=== PATIENT | female | born 1965 | race Caucasian/White ===

== ENCOUNTER → 2016-08-03 | Outpatient (CLI) | payer OTHER ==
[~2016-08-03] MED LIST: ATIVAN 1MG TABLE1 MG PO; DICLOFENAC POTA50 MG PO; DULERA 200 MCG8.8 GM INH; ELIQUIS2.5 MG PO; NEURONTIN 400400 MG PO; NORCO 5-325 TA1 EACH PO; OMEPRAZOLE40 MG PO; PERCOCET 10-321 EACH PO; SERTRALINE HCL100 MG PO; SPIRIVA18 MCG PO
[2016-08-03 09:34] LABS: HEMOGLOBIN 10.4 gm/dl (12.3-15.3); RED BLOOD COUNT 4.37 M/UL (4.00-5.10); WHITE BLOOD COUNT 9.8 K/UL (4.5-11.0)
[2016-08-03 09:44] LABS: BUN/CREATININE RATIO 15 (0-10)
== END ==
LOC: OPSV2 08:30
PROVIDERS: Orthopaedic Surgery
DX: Z01.812 Encounter for preprocedural laboratory examination (principal); Z01.818 Encounter for other preprocedural examination; M17.12 Unilateral primary osteoarthritis, left knee
CPT/HCPCS: 36415; 71020; 80048; 81001; 84703; 85027

== ENCOUNTER → 2016-08-06 | Outpatient (CLI) | payer OTHER | LOC: LAB 13:02 | DX: Z01.812 Encounter for preprocedural laboratory examination (principal) | CPT/HCPCS: 36415; 80051; 82565; 84520; 86850; 86900; 86901 ==

== ENCOUNTER 2016-08-07 06:04 | Inpatient (IN) | payer OTHER ==
[~2016-08-07] VITALS: Ht 175.3 cm; Wt 106.1 kg
[2016-08-07] MEDS ORDERED: NEURONTIN 400400 MG PO (06:57)
[2016-08-07] MEDS ORDERED: ATIVAN 1MG TABLE1 MG PO (06:57)
[2016-08-07] MEDS ORDERED: NORCO 5-325 TA1 EACH PO (06:58)
[2016-08-07] MEDS ORDERED: SERTRALINE HCL100 MG PO (06:58)
[2016-08-07] MEDS ORDERED: SPIRIVA18 MCG PO (06:59)
[2016-08-07] MEDS ORDERED: DULERA 200 MCG8.8 GM INH (07:00)
[2016-08-07] MEDS ORDERED: OMEPRAZOLE40 MG PO (07:01)
[2016-08-07] MEDS ORDERED: DICLOFENAC POTA50 MG PO (18:11)
[2016-08-08 05:43] LABS: HEMOGLOBIN 9.4 gm/dl (12.3-15.3); RED BLOOD COUNT 4.12 M/UL (4.00-5.10); WHITE BLOOD COUNT 6.9 K/UL (4.5-11.0)
[2016-08-08 05:57] LABS: BUN/CREATININE RATIO 12 (0-10)
[2016-08-09 06:07] LABS: RED BLOOD COUNT 3.9 M/UL (4.00-5.10); WHITE BLOOD COUNT 7.7 K/UL (4.5-11.0)
[2016-08-09 06:20] LABS: BUN/CREATININE RATIO 14 (0-10)
[2016-08-10 04:03] LABS: HEMOGLOBIN 9.1 gm/dl (12.3-15.3); RED BLOOD COUNT 3.91 M/UL (4.00-5.10); WHITE BLOOD COUNT 7.5 K/UL (4.5-11.0)
[2016-08-10 04:28] LABS: BUN/CREATININE RATIO 10 (0-10)
[2016-08-10] MEDS ORDERED: PERCOCET 10-321 EACH PO (17:25)
[2016-08-11] MEDS ORDERED: ELIQUIS2.5 MG PO (16:27)
== END 2016-08-11 17:03 | disposition home health service (06) | DRG 470 ==
LOC: ZOBSOF 06:04 → M/S 18:02
PROVIDERS: ADMIT Orthopaedic Surgery
PROC: 0SRD0J9 Replacement of Left Knee Joint with Synthetic Substitute, Cemented, Open Approach (ICD-10-PCS; principal; 2016-08-08)
DX: M17.0 Bilateral primary osteoarthritis of knee (principal); Z86.19 Personal history of other infectious and parasitic diseases; J44.9 Chronic obstructive pulmonary disease, unspecified; F32.9 Major depressive disorder, single episode, unspecified; K44.9 Diaphragmatic hernia without obstruction or gangrene; Z90.2 Acquired absence of lung [part of]; Z98.84 Bariatric surgery status; Z87.891 Personal history of nicotine dependence; D50.9 Iron deficiency anemia, unspecified; Z88.2 Allergy status to sulfonamides; Z88.8 Allergy status to other drugs, medicaments and biological substances; Z79.891 Long term (current) use of opiate analgesic; Z79.51 Long term (current) use of inhaled steroids; Z79.899 Other long term (current) drug therapy
CPT/HCPCS: 36415; 36600; 73560; 80048; 82728; 82803; 83036; 83540; 84703; 85027; 93005; 97110; 97116; 97530; 97535; C1776; J1885; J2250; J2270; J2550; J2710; J2795; J3010; J3370; J7070; J7120; Q0162